=== PATIENT | male | born 2000 | race Two or more races ===

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

== ENCOUNTER 2024-07-17 15:44 | Emergency (ER) | payer MEDICAID ==
[~2024-07-17] VITALS: Ht 170.2 cm; Wt 72.0 kg
[2024-07-17 16:10] VITALS: PULSE 78; RESP 17; O2SAT 94
[2024-07-17] MEDS: levETIRAcetam 1000 mg/100ml 100 ML IV ONE (16:20)
[2024-07-17 16:40] VITALS: BP 93/57; PULSE 80; RESP 93; O2SAT 20
== END 2024-07-17 18:02 | disposition home or self-care (01) ==
LOC: EDBD 15:44 → ER 15:44
DX: G40.909 Epilepsy, unspecified, not intractable, without status epilepticus (principal); J45.909 Unspecified asthma, uncomplicated; F12.90 Cannabis use, unspecified, uncomplicated; Z88.8 Allergy status to other drugs, medicaments and biological substances
CPT/HCPCS: 96365; 99284; J1953